=== PATIENT | female | born 1995 | race Caucasian/White ===

== ENCOUNTER 2016-04-23 09:29 | Emergency (ER) | payer MEDICAID ==
[~2016-04-23 09:29] MED LIST: COLACE-DPS100 MG PO; IRON325 M1 PO; MOTRIN-DPS800 MG PO; PRENATAL VIT1 TAB PO; TYLENOL #3 DPS1 TAB PO
--- NOTE | 2016-05-01 17:46 | ER ---
ADMIT: 04/23/2016 RM/LOC: ER [facility] MR#: [id number] [address] [facility] [address] [place], [place] [address] [facility] [address] [place] [address] Emergency Room Report SEX: F AGE: 20 : 1995 DATE: 04/23/2016 ADDENDUM: This patient comes into the ER because last night she was wrestling with her boyfriend and she states her knee popped, now that it is swollen. She is having difficulty bearing weight on it. On physical exam, there is a mild amount of swelling. No signs of cellulitis. X-ray was negative for any fractures. DIAGNOSIS: Left knee strain. She was put in a postop knee splint. I wrote a prescription for ibuprofen. We will have her ice and elevate it. If she is not feeling better in the next week, she needed to follow up with Kevin Sanders. Please see my T-sheet. KYUNG Jimenez / Bipin Hinton MD / alonsol JOB #: [id number] CC: Bipin Hinton MD, Attending Physician Kevin Sanders MD, Family Physician
== END 2016-04-23 11:23 | disposition home or self-care (01) ==
LOC: ER 09:29
DX: S83.92XA Sprain of unspecified site of left knee, initial encounter (principal); X50.1XXA Overexertion from prolonged static or awkward postures, initial encounter; Y92.009 Unspecified place in unspecified non-institutional (private) residence as the place of occurrence of the external cause

== ENCOUNTER 2016-05-06 10:36 | Emergency (ER) | payer MEDICAID ==
--- NOTE | 2016-05-12 08:15 | ER ---
ADMIT: 05/06/2016 RM/LOC: ER [facility] MR#: [id number] [address] [address] [facility] [address] [place] [address] Emergency Room Report SEX: F AGE: 20 : 1995 DATE: 05/06/2016 HISTORY OF PRESENT ILLNESS: A 20-year-old, who "jumped up awake and felt my knee pop." See T-sheet for remainder of history and physical. She had been seen by her primary doctor and given a knee immobilizer for a knee strain. There was no trauma to her knee. She just woke up suddenly and felt a pop. The patient was given ketorolac in the Emergency Department and prescription for same. Instructed to follow up with primary doctor this week. Ronnie Pal MD/ ron JOB #: [id number] CC: Ronnie Pal MD, Attending Physician
== END 2016-05-06 11:08 | disposition home or self-care (01) ==
LOC: ER 10:36
DX: M25.562 Pain in left knee (principal); Z88.2 Allergy status to sulfonamides; Z88.8 Allergy status to other drugs, medicaments and biological substances; Z79.899 Other long term (current) drug therapy

== ENCOUNTER 2016-05-22 08:47 | Emergency (ER) | payer MEDICAID ==
--- NOTE | 2016-06-06 15:33 | ER ---
ADMIT: 05/22/2016 RM/LOC: ER [facility] MR#: [id number] [id number] [place], [place] [address] [facility] [address] [place] [address] Emergency Room Report SEX: F AGE: 20 : 1995 DATE: 05/22/2016 ADDENDUM: CHIEF COMPLAINT: Cough. HISTORY OF PRESENT ILLNESS: This is a 20-year-old, who developed a fever yesterday, which was as high as 101.8. She has been trying to push fluids, and takes Tylenol for her fever. She is concerned that she has influenza because she was not vaccinated. She has an interview at 1 today, so she wanted to be evaluated before she went to the interview. Her fever here is 100.7. She is actively coughing in the room. I told her more than likely, this is influenza. I told her to continue to push fluids. Use Motrin or Tylenol for the fever, and follow up with her primary care physician if she develops any kind of shortness of breath. CLINICAL IMPRESSION: Bronchitis. KYUNG Peoples / Bipin Hinton MD / alonsol JOB #: [id number] CC: Bipin Hinton MD, Attending Physician Kevin Sanders MD, Family Physician
== END 2016-05-22 09:45 | disposition home or self-care (01) ==
LOC: ER 08:47
DX: J40 Bronchitis, not specified as acute or chronic (principal); J45.909 Unspecified asthma, uncomplicated; Z88.2 Allergy status to sulfonamides; Z88.8 Allergy status to other drugs, medicaments and biological substances